=== PATIENT | male | born 1960 | race Two or more races ===

== ENCOUNTER → 2016-07-04 | Outpatient (CLI) | payer OTHER ==
--- NOTE | 2016-07-05 06:25 | SP ---
DATE OF PROCEDURE: ELECTROENCEPHALOGRAM REFERRING PHYSICIAN: Dr. Alejandro Montero TECHNIQUE: EEG done using 10-20 International electrode system. FINDINGS: Bilateral occipital hemispheric view shows alpha wave, 8 to 9 Hz, medium size, low amplit ude, asymmetric bilateral. Some electromyogram artifacts recorded. Photic stimulation done did not elicit a drive. No epileptiform discharge or seizure activities recorded. IMPRESSION: This is normal electroencephalogram. Normal electroencephalogram does not exclude a cl inical history of seizure. Followup EEG may be needed if clinically indicated. Again, thank you for asking me to see the patient with you. Dictated By: RAZA RUIZ MD NA/NTS Conf#: [id number] DID#: [id number] CC: Alejandro Montero MD;*EndCC*
== END | disposition home or self-care (01) ==
LOC: EEG 12:37
PROVIDERS: ATTEND Psychiatry & Neurology Neurology
DX: R51 Headache (principal)
CPT/HCPCS: 95819

== ENCOUNTER → 2018-03-13 | Outpatient (CLI) | END | disposition home or self-care (01) ==

== ENCOUNTER 2018-04-12 10:27 | Emergency (ER) | payer OTHER ==
[~2018-04-12] VITALS: Ht 170.2 cm; Wt 80.8 kg
[2018-04-12 10:28] VITALS: Ht 170.2 cm; Wt 80.8 kg
--- NOTE | 2018-04-12 11:28 | ERD ---
ER Documentation Chief Complaint Chief Complaint felt dizziness while jogging & fell, right eye swollen shut x2hrs HPI This is a 57-year-old male who presents for evaluation of syncopal episode with facial trauma. Patient states he was just jogging, and felt dizzy, and then had syncopal episode, he immediately was able to get back up. However he had significant swelling of his right eye, and pain in a bloody nose. This never h appened before, he denies chest pain or shortness of breath. He has no history of seizures. ROS All systems reviewed and are negative except as per history of present illness. Allergies Allergies: Coded Allergies: No Known Allergy (Unverified , 04/12/18) Physical Exam Vitals Vital Signs Date Temp Pulse Resp B/P (MAP) Pulse Ox O2 O2 Flow FiO2 Time Delivery Rate 04/12/18 99.2 97 18 136/91 97 10:28 (106) Physical Exam Const: Alert, awake, with obvious facial trauma Head: Atraumatic Eyes: Normal Conjunctiva ENT: There is significant periorbital ecchymosis over the right eye, with multiple abrasions over the right zygoma, there is no loose dentition, there are intraoral lacerations, over the lower and upper lip. Bottom one measures possibly 1 cm, the top one measures roughly 1.5 cm, there is blood in the nares noted bilaterally. Neck: Full range of motion. No meningismus. Resp: Clear to auscultation bilaterally Cardio: Regular rate and rhythm, no murmurs Abd: Soft, non tender, non distended. Normal bowel sounds Skin: No petechiae or rashes Back: No midline or flank tenderness Ext: No cyanosis, or edema Neur: Awake and alert, cranial 2 through 12 intact Psych: Normal Mood and Affect Result Diagram: 04/12/18 1103 04/12/18 1103 Results 24 hrs Laboratory Tests Test 04/12/18 11:03 White Blood Count 13.5 10^3/ul Red Blood Count 4.82 10^6/ul Hemoglobin 14.1 g/dl Hematocrit 40.6 % Mean Corpuscular Volume 84.2 fl Mean Corpuscular Hemoglobin 29.3 pg Mean Corpuscular Hemoglobin Concent 34.7 g/dl Red Cell Distribution Width 13.6 % Platelet Count 175 10^3/UL Mean Platelet Volume 11.7 fl Immature Granulocytes % 0.300 % Neutrophils % 89.9 % Lymphocytes % 4.7 % Monocytes % 4.8 % Eosinophils % 0.1 % Basophils % 0.2 % Nucleated Red Blood Cells % 0.0 /100WBC Immature Granulocytes # 0.040 10^3/ul Neutrophils # 12.1 10^3/ul Lymphocytes # 0.6 10^3/ul Monocytes # 0.7 10^3/ul Eosinophils # 0.0 10^3/ul Basophils # 0.0 10^3/ul Nucleated Red Blood Cells # 0.0 10^3/ul Sodium Level 139 mmol/L Potassium Level 4.1 mmol/L Chloride Level 103 mmol/L Carbon Dioxide Level 28 mmol/L Anion Gap 8 Blood Urea Nitrogen 17 mg/dl Creatinine 0.88 mg/dl Est Glomerular Filtrat Rate mL/min > 60 mL/min Glucose Level 151 mg/dl Calcium Level 9.5 mg/dl Total Bilirubin 0.4 mg/dl Direct Bilirubin 0.00 mg/dl Indirect Bilirubin 0.4 mg/dl Aspartate Amino Transf (AST/SGOT) 26 IU/L Alanine Aminotransferase (ALT/SGPT) 25 IU/L Alkaline Phosphatase 67 IU/L Troponin I < 0.012 ng/ml Total Protein 7.0 g/dl Albumin 4.5 g/dl Globulin 2.50 g/dl Albumin/Globulin Ratio 1.80 Current Medications Medications Dose Sig/Chelsea Start Time Status Last (Trade) Ordered Route PRN Stop Time Admin Dose Reason Admin Morphine 4 mg ONCE STAT 04/12/18 DC 04/12/18 Sulfate IV 11:33 11:53 (morphine) 04/12/18 11:35 Ondansetron 4 mg ONCE STAT 04/12/18 DC 04/12/18 HCl (Zofran IV 11:33 11:53 Inj) 04/12/18 11:35 Diphtheria/ 0.5 ml ONCE ONCE 04/12/18 DC Tetanus/Acell IM* 13:30 Pertussis 04/12/18 13:31 (Adacel) Cefazolin 50 ml @ ONCE ONCE 04/12/18 Sodium/ 100 mls/hr IVPB 14:00 Dextrose 04/12/18 14:29 Procedures/MDM Is a 57-year-old male who presents for evaluation for facial trauma and setting of syncope. The patient's cardiac workup was unremarkable, of greatest concern is that his CT of his face while showing no acute intracranial hemorrhage, showed LeFort type III facial fracture. Patient has no airway compromise, he is awake and alert, his tetanus was updated, he will be transferred to higher level of care at [facility] Dr. Gandhi is the accepting surgeon, Dr. Avila is accepting ED physician. Patient's cardiac workup was unremarkable, at time of transfer the patient was stable, Ancef has been ordered, but at the time of this dictation of this note, antibiotics have not yet been given. Departure Diagnosis: Primary Impression: Le Fort III fracture Encounter type: initial encounter Fracture type: open Qualified Codes: S02.413B - LeFort III fracture, initial encounter for open fracture Additional Impression: Syncope Syncope type: unspecified Qualified Codes: R55 - Syncope and collapse Condition: Serious CORBIN LEWIS MD Apr 12, 2018 11:28
[2018-04-12] MEDS ORDERED: ONDANSETRON 4 MG INJ IV STA (11:33)
[2018-04-12] MEDS ORDERED: morphine 4 MG/ML VIAL IV STA (11:33)
[2018-04-12] MEDS ORDERED: DIPHTH/TET/ACEL PERTUSS (ADULT) 0.5 ML VIAL IM* ONE (13:30)
[2018-04-12] MEDS ORDERED: CEFAZOLIN 2 GM/50 ML (PMX) 50 ML IVPB ONE (14:00)
[2018-04-12 14:15] VITALS: BP 122/70; PULSE 87; RESP 18
== END 2018-04-12 15:06 | disposition short-term general hospital (02) ==
LOC: E/R 10:27
DX: S02.41 LeFort fracture (principal); R55 Syncope and collapse; W18.39XA Other fall on same level, initial encounter; Y92.9 Unspecified place or not applicable; Z23 Encounter for immunization
CPT/HCPCS: 36415; 70486; 71045; 72125; 80053; 84484; 85025; 90471; 90715; 93005; 96374; 96375; J0690; J2270; J2405; Z7502